=== PATIENT | male | born 1995 | race Caucasian/White ===

== ENCOUNTER 2017-04-20 19:47 | Emergency (ER) | payer OTHER, MEDICAID ==
[~2017-04-20] VITALS: Ht 185.4 cm; Wt 75.0 kg
[2017-04-20 20:13] VITALS: BP 137/79; PULSE 72; RESP 16; TEMP 98.2; O2SAT 100
[2017-04-20] MEDS ORDERED: LACTATED RINGER'S 1000 ML INJ 1,000 ML IV SCH (20:18)
[2017-04-20 20:22] VITALS: O2SAT 100
[2017-04-20] MEDS ORDERED: SODIUM CHLORIDE 0.9% FLUSH 10 ML FLUSH IVF PRN (20:30)
[2017-04-20] MEDS ORDERED: MORPHINE SULFATE 4 MG/ML INJ IV PUSH ONE (20:30)
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
[2017-04-20 22:05] VITALS: BP 156/69; PULSE 82; RESP 16
[2017-04-20] MEDS ORDERED: IOHEXOL 350 MG/ML 10 ML VIAL (for RAD DIAG) IVCONTRAST ONE (23:01)
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
[2017-04-21] MEDS ORDERED: IBUPROFEN 600 MG TAB PO ONE (00:15)
[2017-04-21 00:16] VITALS: BP 137/73; RESP 14; O2SAT 98
[2017-04-21] MEDS ORDERED: IBUP-232 PO (00:26)
--- NOTE | 2017-04-21 23:33 | EKG ---
Date Performed: 04/20/2017 Time Performed: 20:51:19 PTAGE: 21 years EKG: Sinus rhythm WITH SHORT PA INTERVAL BORDERLINE ECG NO PREVIOUS TRACING DOCTOR: Abilio Simon Interpretating Date/Time 04/21/2017 23:31:37
== END 2017-04-21 00:39 | disposition home or self-care (01) ==
LOC: NEPC 19:47
DX: S89.91XA Unspecified injury of right lower leg, initial encounter (principal); F17.200 Nicotine dependence, unspecified, uncomplicated; R07.9 Chest pain, unspecified; V43.52XA Car driver injured in collision with other type car in traffic accident, initial encounter; Y92.411 Interstate highway as the place of occurrence of the external cause
CPT/HCPCS: 70450; 71045; 73564; 74177; 80048; 80307; 93005; 96360; 99285; E0113; J7120; L1830; Q9967